=== PATIENT | male | born 1935 | race Caucasian/White ===

== ENCOUNTER 2021-06-18 09:36 | Emergency (ER) | payer MEDICARE ==
[2021-06-18 11:59] VITALS: BP 137/76; PULSE 58
== END 2021-06-18 11:57 | disposition home or self-care (01) ==
LOC: JD.ED 09:36
DX: S00.81XA Abrasion of other part of head, initial encounter (principal); E11.9 Type 2 diabetes mellitus without complications; Z79.4 Long term (current) use of insulin; Z87.891 Personal history of nicotine dependence; Z88.2 Allergy status to sulfonamides; Z88.6 Allergy status to analgesic agent; Z88.8 Allergy status to other drugs, medicaments and biological substances; W00.9XXA Unspecified fall due to ice and snow, initial encounter
CPT/HCPCS: 70450; 70450-26; 73130-26-RT; 73130-RT; 93005; 93010; 99284-25; 99285